=== PATIENT | male | born 1980 | race Caucasian/White ===

== ENCOUNTER 2017-01-24 17:10 | Emergency (ER) | payer SELFPAY ==
[2017-01-24] MEDS ORDERED: CEPHALEXIN 500 MG CAPSULE ONE (17:52)
[2017-01-24] MEDS ORDERED: SULFAMETHOXAZOLE 800 MG/TRIMETHOPRIM 160 MG TABLET ONE (17:53)
== END 2017-01-24 18:17 | disposition home or self-care (01) ==
LOC: ED 17:10
DX: L02.413 Cutaneous abscess of right upper limb (principal); H00.033 Abscess of eyelid right eye, unspecified eyelid; F17.210 Nicotine dependence, cigarettes, uncomplicated
CPT/HCPCS: 87070; 99283 ×2; 10061 ×2; 67700 ×2; A9270 ×2